=== PATIENT | female | born 1945 | race Caucasian/White ===

== ENCOUNTER → 2016-05-30 | Outpatient (CLI) | payer MEDICARE ==
[~2016-05-30] MED LIST: ACYC400T PO; AMIT50TA3 PO; CHOL100092 PO; CYCL-375 PO; ENOX60DI SQ; FENT1PAT66 TOP; GABA-338 PO; GUAI120015 PO; LENA15CA; LEVO150T4 PO; LORA0.5T86 PO; OMEP20CA10 PO; ONDA4TAB4 PO; OXYC1TAB11 PO; PROP40TA7 PO; SODI45SP7 EA NOSTRIL; SULF1TAB42 PO
[2016-05-30 14:44] LABS: HCT - HEMATOCRIT 35.8 % (36-46); MEAN CORPUSCULAR HGB 28.4 UUG (26-34); MEAN CORPUSCULAR HGB CONC(MCHC 30.7 GM/DL (31-37); MEAN CORPUSCULAR VOLUME 92.3 UM3 (80-100); RED BLOOD COUNT 3.88 M/MM3 (4.00-5.20); WBC - WHITE BLOOD COUNT 9.2 T/MM3 (4.5-11.0)
[2016-05-30 14:58] LABS: ALBUMIN 3.6 G/DL (3.5-5.0); ALBUMIN/GLOBULIN RATIO 1.1 RATIO (1.1-2.2); ALKALINE PHOSPHATASE 63 U/L (38-126); ALT (SGPT) 30 U/L (9-52); ANION GAP 11 MEQ/L (5-15); AST (SGOT) 15 U/L (14-36); BUN/CREATININE RATIO 24 RATIO (6-26); CALCIUM 8.3 MG/DL (8.4-10.2); CHLORIDE 104 MEQ/L (98-107); CO2 - CARBON DIOXIDE 27 MEQ/L (22-30); CREATININE 0.7 MG/DL (0.7-1.2); GLOMERULAR FILTRATION RATE 82; GLUCOSE 146 MG/DL (65-110); LDH 368 U/L (313-618); MAGNESIUM 2.3 MG/DL (1.6-2.3); POTASSIUM 4.1 MEQ/L (3.6-5); SODIUM 142 MEQ/L (134-144); TOTAL PROTEIN 6.9 G/DL (6.3-8.2)
[2016-05-30 14:59] LABS: ANISOCYTOSIS 1+; BAND NEUTROPHILS # 1.2 T/MM3; BASOPHILS # (MANUAL) 0.1 T/MM3 (0-0.2); LYMPHOCYTES # (MANUAL) 0.5 T/MM3 (1-4.8); MONOCYTES # (MANUAL) 0.3 T/MM3 (0-0.8); NEUTROPHILS #(MANUAL)-ABSOLUTE 7.2 T/MM3 (1.8-7.7); POIKILOCYTOSIS 1+; TOTAL CELLS COUNTED 100 %
--- NOTE | 2016-05-30 16:00 | DI ---
Indication: ITS.REASON: M54.5 LOW BACK PAIN PROCEDURE: CT LUMBAR SPINE W/O CONTRAST: Encounter: Subsequent Comparison: 04/03/2016 Technique: Contiguous axial CT images of the lumbar spine were obtained without intravenous contrast. Coronal and sagittal reformatted images were also obtained. Automated Exposure Control and Iterative Reconstruction dose reducing techniques were utilized. Findings: Interval T12 vertebroplasty. Interval increased healing sclerosis of the previously noted fracture of the inferior endplate of L3. No other acute fracture. Prior sacroplasty. The normal lumbar lordosis is maintained. Unchanged anterolisthesis of L4-L5. No suspicious lytic or blastic osseous lesions. Unchanged degenerative spondylosis and resulting predominantly mild to moderate neural foraminal narrowing and spinal canal stenosis. No acute paravertebral soft tissue abnormality. No acute abnormality of the visualized intra-abdominal/pelvic organs. IVC filter noted. The gallbladder is surgically absent. Aortic atherosclerotic calcifications. Impression: 1. Interval T12 vertebroplasty. 2. Increased healing sclerosis of the previously noted fracture of the inferior endplate of L3. 3. No other new/acute fracture. 4. Unchanged degenerative spondylosis. 5. Prior sacroplasty. .
== END ==
LOC: IMA 14:27
PROVIDERS: ATTEND Internal Medicine Hematology & Oncology
DX: C90.00 Multiple myeloma not having achieved remission (principal); I70.0 Atherosclerosis of aorta; M47.9 Spondylosis, unspecified; M89.8X8 Other specified disorders of bone, other site; Z98.890 Other specified postprocedural states; M54.5 Low back pain
CPT/HCPCS: 36415; 80053; 83615; 83735; 85025